=== PATIENT | male | born 1965 | race Caucasian/White ===

== ENCOUNTER 2023-08-18 17:37 | Inpatient (IN) | payer MEDICARE, OTHER ==
[~2023-08-18] VITALS: Ht 190.5 cm; Wt 81.2 kg
[2023-08-18 18:20] VITALS: BP 129/82; TEMP 97.4; O2SAT 100
[2023-08-18] MEDS ORDERED: BLOOD SUGAR DIAGNOSTIC 1 EACH STRIP VI ONE (18:30)
[2023-08-18] MEDS ORDERED: MAG HYDROX/AL HYDROX/SIMETH 30 ML LIQUID UDC PO PRN (18:30)
[2023-08-18] MEDS ORDERED: MAGNESIUM HYDROXIDE 30 ML LIQUID UDC PO PRN (18:30)
[2023-08-18 20:00] VITALS: BP 131/81; TEMP 97.6; O2SAT 99
[2023-08-18] MEDS: ACETAMINOPHEN 325 MG TABLET PO PRN (20:49)
[2023-08-18] MEDS: LORAZEPAM 1 MG TABLET PO PRN (20:50)
[2023-08-18] MEDS ORDERED: PHEN20EL8 PO (23:09)
[2023-08-18] MEDS ORDERED: BENZ1TAB7 PO (23:09)
[2023-08-18] MEDS ORDERED: RISP3TAB61 PO (23:09)
[2023-08-18] MEDS ORDERED: ASPI-1169 PO (23:09)
[2023-08-18] MEDS ORDERED: ATOR20TA PO (23:09)
[2023-08-18] MEDS ORDERED: GABA100C PO (23:09)
[2023-08-18] MEDS ORDERED: FURO-152 PO (23:09)
[2023-08-18] MEDS ORDERED: QUET200T PO (23:09)
[2023-08-18] MEDS ORDERED: POTA20TA83 PO (23:09)
[2023-08-18] MEDS ORDERED: LITH300T3 PO (23:09)
[2023-08-18] MEDS ORDERED: LEVE1000 PO (23:09)
[2023-08-18] MEDS ORDERED: DILT-32 PO (23:09)
[2023-08-18] MEDS ORDERED: DIGO125T PO (23:09)
[2023-08-18] MEDS: ZOLPIDEM 5 MG TABLET PO PRN (23:19)
[2023-08-19 07:53] VITALS: BP 122/60; TEMP 98.4; O2SAT 99
[2023-08-19 08:11] LABS: BASOPHILS % (AUTO) 0.2 % (0.0-2.0); DIFFERENTIAL COMMENT 1; EOSINOPHILS # (AUTO) 0.2 K/uL (0.0-0.7); EOSINOPHILS % (AUTO) 2.9 % (0.0-7.0); HEMATOCRIT 40.1 % (36.7-47.1); HEMOGLOBIN 13.5 g/dL (12.5-16.3); LYMPHOCYTES # (AUTO) 0.8 K/uL (0.8-4.8); LYMPHOCYTES % (AUTO) 11.5 % (20.5-51.5); MEAN CORPUSCULAR HEMOGLOBIN 28.8 uug (23.8-33.4); MEAN CORPUSCULAR HGB CONC 34 g/dL (32.5-36.3); MEAN CORPUSCULAR VOLUME 85.6 fL (73.0-96.2); MONOCYTES # (AUTO) 0.6 K/uL (0.1-1.30); MONOCYTES % (AUTO) 8.2 % (0.0-11.0); NEUTROPHILS # (AUTO) 5.4 K/uL (1.8-8.9); NEUTROPHILS % (AUTO) 77.2 % (38.5-71.5); PLATELET COUNT (AUTO) 216 K/uL (152-348); RED BLOOD CELL COUNT(AUTO) 4.69 MIL/uL (4.06-5.63); RED CELL DISTRIBUTION WIDTH 14.9 % (12.1-16.2); WHITE BLOOD COUNT (AUTO) 6.9 K/uL (3.6-10.2)
[2023-08-19 08:53] LABS: ALBUMIN 3.3 g/dL (3.4-5.0); BILIRUBIN,TOTAL 0.5 mg/dL (0.2-1.0); CALCIUM 8.5 mg/dL (8.5-10.1); CREATININE 0.7 mg/dL (0.6-1.3); THYROID STIMULATING HORMONE 0.777 mIU/mL (0.358-3.740); TOTAL PROTEIN, SERUM 6.1 g/dL (6.4-8.2)
[2023-08-19 09:09] LABS: MAGNESIUM 1.9 mg/dL (1.8-2.4); PHOSPHOROUS 3.4 mg/dL (2.5-4.9)
[2023-08-19] MEDS: GABAPENTIN 100 MG CAPSULE PO SCH ×2 (13:51→17:34)
[2023-08-19 15:39] VITALS: BP 124/78; TEMP 98.2; O2SAT 96
[2023-08-19] MEDS ORDERED: DILT-2 PO (15:40)
[2023-08-19] MEDS ORDERED: ATOR40TA PO (15:40)
[2023-08-19] MEDS ORDERED: POLY17PO4 PO (15:40)
[2023-08-19] MEDS ORDERED: QUET200T PO (15:40)
[2023-08-19] MEDS ORDERED: LEVE500T9 PO (15:40)
[2023-08-19] MEDS ORDERED: BENZ1TAB7 PO (15:40)
[2023-08-19] MEDS ORDERED: LUBI24CA5 PO (15:40)
[2023-08-19] MEDS ORDERED: APIX5TAB PO (15:40)
[2023-08-19] MEDS ORDERED: PHENOBARBITAL PO (15:40)
[2023-08-19] MEDS ORDERED: RISP3TAB5 PO (15:40)
[2023-08-19] MEDS ORDERED: DOCU100C36 PO (15:40)
[2023-08-19] MEDS ORDERED: ACET325T53 PO (15:40)
[2023-08-19] MEDS: LITHIUM CARBONATE 300 MG CAPSULE PO SCH (17:33)
[2023-08-19] MEDS: risperiDONE 2 MG TABLET PO SCH (17:34)
[2023-08-19 20:07] VITALS: BP 131/69; TEMP 98.1; O2SAT 96
[2023-08-19] MEDS: levETIRAcetam 500 MG TABLET PO SCH (20:38)
[2023-08-19] MEDS: ATORVASTATIN 40 MG TABLET PO SCH (20:38)
[2023-08-19] MEDS: TRAZODONE 50 MG TABLET PO SCH (20:38)
[2023-08-20 08:00] VITALS: BP 95/47; TEMP 97.9; O2SAT 97
[2023-08-20] MEDS: levETIRAcetam 500 MG TABLET PO SCH ×2 (08:55→20:06)
[2023-08-20] MEDS: DILTIAZEM HCL CD 120 MG CAP.SR.24H PO SCH (08:55)
[2023-08-20] MEDS: LITHIUM CARBONATE 300 MG CAPSULE PO SCH ×2 (08:55→17:00)
[2023-08-20] MEDS: risperiDONE 2 MG TABLET PO SCH ×2 (08:55→17:00)
[2023-08-20] MEDS: GABAPENTIN 100 MG CAPSULE PO SCH ×3 (08:56→17:01)
[2023-08-20] MEDS: DIGOXIN 125 MCG TABLET PO SCH (08:59)
[2023-08-20] MEDS ORDERED: ASPIRIN 81 MG TAB.CHEW PO SCH (09:00)
[2023-08-20] MEDS ORDERED: POTASSIUM CHLORIDE 20 MEQ TAB.PRT.SR PO SCH (09:00)
[2023-08-20] MEDS ORDERED: FUROSEMIDE 20 MG TABLET PO SCH (09:00)
[2023-08-20] MEDS ORDERED: ACETAMINOPHEN 325 MG TABLET-SA PATIENTS-PAIN ONLY PO PRN (12:00)
[2023-08-20] MEDS ORDERED: QUETIAPINE FUMARATE 200 MG TABLET PO SCH (13:00)
[2023-08-20 15:34] VITALS: BP 126/90; TEMP 98.1; O2SAT 97
[2023-08-20] MEDS: DOCUSATE SODIUM 100 MG CAPSULE PO SCH (16:59)
[2023-08-20] MEDS: APIXABAN 5 MG TABLET PO SCH (17:00)
[2023-08-20] MEDS ORDERED: levETIRAcetam 500 MG TABLET PO SCH (17:00)
[2023-08-20 19:49] VITALS: BP 123/69; TEMP 97.5; O2SAT 98
[2023-08-20] MEDS: ATORVASTATIN 40 MG TABLET PO SCH (20:06)
[2023-08-20] MEDS: TRAZODONE 50 MG TABLET PO SCH (20:06)
[2023-08-20] MEDS ORDERED: ATORVASTATIN 40 MG TABLET PO SCH (21:00)
[2023-08-20] MEDS: ZOLPIDEM 5 MG TABLET PO PRN (21:54)
[2023-08-21] MEDS: LORAZEPAM 1 MG TABLET PO PRN ×2 (01:06→22:43)
[2023-08-21 07:54] VITALS: BP 127/79; TEMP 98; O2SAT 99
[2023-08-21] MEDS: MIRALAX 17 GM POWD.PACK PO SCH (08:50)
[2023-08-21] MEDS: DOCUSATE SODIUM 100 MG CAPSULE PO SCH ×2 (08:53→16:43)
[2023-08-21] MEDS: risperiDONE 2 MG TABLET PO SCH ×2 (08:54→16:43)
[2023-08-21] MEDS: GABAPENTIN 100 MG CAPSULE PO SCH ×3 (08:54→16:43)
[2023-08-21] MEDS: APIXABAN 5 MG TABLET PO SCH ×2 (08:55→16:49)
[2023-08-21] MEDS: levETIRAcetam 500 MG TABLET PO SCH ×2 (08:55→20:29)
[2023-08-21] MEDS: DILTIAZEM HCL CD 120 MG CAP.SR.24H PO SCH (08:57)
[2023-08-21] MEDS: LITHIUM CARBONATE 300 MG CAPSULE PO SCH ×2 (08:57→16:43)
[2023-08-21] MEDS: DIGOXIN 125 MCG TABLET PO SCH (08:58)
[2023-08-21] MEDS ORDERED: BENZTROPINE MESYLATE 1 MG TABLET PO SCH (09:00)
[2023-08-21] MEDS ORDERED: DILTIAZEM HCL CD 120 MG CAP.SR.24H PO SCH (09:00)
[2023-08-21 14:42] VITALS: BP 132/52; TEMP 97.8; O2SAT 99
[2023-08-21] MEDS: ENSURE ENLIVE (VAN) 240 ML LIQUID PO SCH (17:00)
[2023-08-21 19:44] VITALS: BP 121/57; TEMP 97.3; O2SAT 98
[2023-08-21] MEDS: TRAZODONE 50 MG TABLET PO SCH (20:28)
[2023-08-21] MEDS: ATORVASTATIN 40 MG TABLET PO SCH (20:29)
[2023-08-21] MEDS: ZOLPIDEM 5 MG TABLET PO PRN (23:45)
[2023-08-22 07:33] VITALS: BP 142/64; TEMP 98.4; O2SAT 98
[2023-08-22] MEDS: DOCUSATE SODIUM 100 MG CAPSULE PO SCH ×2 (09:23→17:04)
[2023-08-22] MEDS: LITHIUM CARBONATE 300 MG CAPSULE PO SCH ×2 (09:23→17:04)
[2023-08-22] MEDS: levETIRAcetam 500 MG TABLET PO SCH ×2 (09:23→20:41)
[2023-08-22] MEDS: GABAPENTIN 100 MG CAPSULE PO SCH ×3 (09:23→17:04)
[2023-08-22] MEDS: risperiDONE 2 MG TABLET PO SCH ×3 (09:23→17:04)
[2023-08-22] MEDS: DIGOXIN 125 MCG TABLET PO SCH (09:23)
[2023-08-22] MEDS: DILTIAZEM HCL CD 120 MG CAP.SR.24H PO SCH (09:24)
[2023-08-22] MEDS: APIXABAN 5 MG TABLET PO SCH ×2 (09:55→17:56)
[2023-08-22] MEDS: MIRALAX 17 GM POWD.PACK PO SCH (09:57)
[2023-08-22] MEDS: ENSURE ENLIVE (VAN) 240 ML LIQUID PO SCH ×2 (09:59→17:56)
[2023-08-22 16:01] VITALS: BP 135/74; TEMP 98.3; O2SAT 98
[2023-08-22] MEDS: LORAZEPAM 1 MG TABLET PO PRN ×2 (17:04→22:48)
[2023-08-22 20:00] VITALS: BP 132/69; TEMP 97.8; O2SAT 99
[2023-08-22] MEDS: ATORVASTATIN 40 MG TABLET PO SCH (20:42)
[2023-08-22] MEDS: TRAZODONE 50 MG TABLET PO SCH (20:42)
[2023-08-22] MEDS: ACETAMINOPHEN 325 MG TABLET PO PRN (22:04)
[2023-08-22] MEDS: ZOLPIDEM 5 MG TABLET PO PRN (23:49)
[2023-08-23 07:50] VITALS: BP 142/65; TEMP 98; O2SAT 98
[2023-08-23] MEDS: ENSURE ENLIVE (VAN) 240 ML LIQUID PO SCH ×2 (08:00→17:15)
[2023-08-23] MEDS: risperiDONE 2 MG TABLET PO SCH ×3 (08:49→17:14)
[2023-08-23] MEDS: LITHIUM CARBONATE 300 MG CAPSULE PO SCH (08:49)
[2023-08-23] MEDS: levETIRAcetam 500 MG TABLET PO SCH ×2 (08:50→21:05)
[2023-08-23] MEDS: APIXABAN 5 MG TABLET PO SCH ×2 (08:51→17:13)
[2023-08-23] MEDS: GABAPENTIN 100 MG CAPSULE PO SCH ×3 (08:52→17:14)
[2023-08-23] MEDS: DIGOXIN 125 MCG TABLET PO SCH (08:53)
[2023-08-23] MEDS: DILTIAZEM HCL CD 120 MG CAP.SR.24H PO SCH (08:53)
[2023-08-23] MEDS: DOCUSATE SODIUM 100 MG CAPSULE PO SCH ×2 (09:00→17:00)
[2023-08-23] MEDS: MIRALAX 17 GM POWD.PACK PO SCH (09:00)
[2023-08-23 14:34] LABS: BASOPHILS % (AUTO) 0.4 % (0.0-2.0); DIFFERENTIAL COMMENT 0; EOSINOPHILS # (AUTO) 0.1 K/uL (0.0-0.7); EOSINOPHILS % (AUTO) 1.2 % (0.0-7.0); HEMATOCRIT 45.3 % (36.7-47.1); HEMOGLOBIN 15.6 g/dL (12.5-16.3); LYMPHOCYTES # (AUTO) 0.5 K/uL (0.8-4.8); LYMPHOCYTES % (AUTO) 5.5 % (20.5-51.5); MEAN CORPUSCULAR HEMOGLOBIN 29.1 uug (23.8-33.4); MEAN CORPUSCULAR HGB CONC 34 g/dL (32.5-36.3); MEAN CORPUSCULAR VOLUME 84.8 fL (73.0-96.2); MONOCYTES # (AUTO) 0.6 K/uL (0.1-1.30); MONOCYTES % (AUTO) 6.8 % (0.0-11.0); NEUTROPHILS # (AUTO) 8.2 K/uL (1.8-8.9); NEUTROPHILS % (AUTO) 86.1 % (38.5-71.5); PLATELET COUNT (AUTO) 209 K/uL (152-348); RED BLOOD CELL COUNT(AUTO) 5.35 MIL/uL (4.06-5.63); RED CELL DISTRIBUTION WIDTH 14.2 % (12.1-16.2); WHITE BLOOD COUNT (AUTO) 9.5 K/uL (3.6-10.2)
[2023-08-23 14:44] LABS: CALCIUM 9.6 mg/dL (8.5-10.1); CREATININE 0.9 mg/dL (0.6-1.3); POTASSIUM 4.6 mmol/L (3.5-5.1)
[2023-08-23 14:50] LABS: ALBUMIN 4.1 g/dL (3.4-5.0); BILIRUBIN,TOTAL 0.7 mg/dL (0.2-1.0); TOTAL PROTEIN, SERUM 7.4 g/dL (6.4-8.2)
[2023-08-23 16:07] VITALS: BP 127/59; TEMP 98; O2SAT 98
[2023-08-23 20:00] VITALS: BP 129/73; TEMP 97.9; O2SAT 100
[2023-08-23] MEDS: ATORVASTATIN 40 MG TABLET PO SCH (21:04)
[2023-08-23] MEDS: TRAZODONE 50 MG TABLET PO SCH (21:04)
[2023-08-23] MEDS: ACETAMINOPHEN 325 MG TABLET PO PRN (21:05)
[2023-08-23] MEDS: ZOLPIDEM 5 MG TABLET PO PRN (22:06)
[2023-08-24] MEDS: LORAZEPAM 1 MG TABLET PO PRN (00:06)
[2023-08-24 08:08] VITALS: BP 114/61; TEMP 98.4; O2SAT 97
[2023-08-24] MEDS: levETIRAcetam 500 MG TABLET PO SCH ×2 (08:32→20:08)
[2023-08-24] MEDS: risperiDONE 2 MG TABLET PO SCH ×3 (08:32→17:07)
[2023-08-24] MEDS: GABAPENTIN 100 MG CAPSULE PO SCH ×3 (08:32→17:07)
[2023-08-24] MEDS: APIXABAN 5 MG TABLET PO SCH ×2 (08:33→17:09)
[2023-08-24] MEDS: DILTIAZEM HCL CD 120 MG CAP.SR.24H PO SCH (08:34)
[2023-08-24] MEDS: DIGOXIN 125 MCG TABLET PO SCH (08:34)
[2023-08-24] MEDS: DOCUSATE SODIUM 100 MG CAPSULE PO SCH ×2 (08:35→17:00)
[2023-08-24] MEDS: ENSURE ENLIVE (VAN) 240 ML LIQUID PO SCH ×2 (08:35→17:10)
[2023-08-24] MEDS: MIRALAX 17 GM POWD.PACK PO SCH (08:36)
[2023-08-24 16:27] VITALS: BP 122/70; TEMP 98.2; O2SAT 98
[2023-08-24 19:41] VITALS: BP 122/66; TEMP 98.1; O2SAT 100
[2023-08-24] MEDS: ATORVASTATIN 40 MG TABLET PO SCH (20:08)
[2023-08-24] MEDS: TRAZODONE 50 MG TABLET PO SCH (20:08)
[2023-08-24] MEDS: ZOLPIDEM 5 MG TABLET PO PRN (22:19)
[2023-08-25] MEDS: LORAZEPAM 1 MG TABLET PO PRN (01:47)
[2023-08-25 07:52] VITALS: BP 126/64; TEMP 98.2; O2SAT 100
[2023-08-25] MEDS: levETIRAcetam 500 MG TABLET PO SCH ×2 (12:19→20:55)
[2023-08-25] MEDS: GABAPENTIN 100 MG CAPSULE PO SCH ×3 (12:19→16:53)
[2023-08-25] MEDS: risperiDONE 2 MG TABLET PO SCH ×3 (12:20→16:53)
[2023-08-25] MEDS: MIRALAX 17 GM POWD.PACK PO SCH (12:20)
[2023-08-25] MEDS: DOCUSATE SODIUM 100 MG CAPSULE PO SCH ×2 (12:20→16:53)
[2023-08-25] MEDS: DILTIAZEM HCL CD 120 MG CAP.SR.24H PO SCH (12:21)
[2023-08-25] MEDS: DIGOXIN 125 MCG TABLET PO SCH (12:21)
[2023-08-25] MEDS: APIXABAN 5 MG TABLET PO SCH ×2 (12:22→16:55)
[2023-08-25 15:33] VITALS: BP 125/65; TEMP 98.2; O2SAT 100
[2023-08-25 20:13] VITALS: BP 115/60; TEMP 98.1; O2SAT 98
[2023-08-25] MEDS: ATORVASTATIN 40 MG TABLET PO SCH (20:55)
[2023-08-25] MEDS: TRAZODONE 50 MG TABLET PO SCH (20:56)
[2023-08-25] MEDS: TEMAZEPAM 15 MG CAPSULE PO PRN (22:05)
[2023-08-26 07:52] VITALS: BP 116/77; TEMP 98.2; O2SAT 99
[2023-08-26] MEDS: MIRALAX 17 GM POWD.PACK PO SCH (09:00)
[2023-08-26] MEDS: DOCUSATE SODIUM 100 MG CAPSULE PO SCH ×2 (09:00→16:51)
[2023-08-26] MEDS: levETIRAcetam 500 MG TABLET PO SCH ×2 (10:44→21:07)
[2023-08-26] MEDS: GABAPENTIN 100 MG CAPSULE PO SCH ×3 (10:44→16:50)
[2023-08-26] MEDS: risperiDONE 2 MG TABLET PO SCH ×3 (10:44→16:50)
[2023-08-26] MEDS: ENSURE ENLIVE (VAN) 240 ML LIQUID PO SCH (10:45)
[2023-08-26] MEDS: DILTIAZEM HCL CD 120 MG CAP.SR.24H PO SCH (10:45)
[2023-08-26] MEDS: DIGOXIN 125 MCG TABLET PO SCH (10:45)
[2023-08-26] MEDS: APIXABAN 5 MG TABLET PO SCH ×2 (10:49→16:50)
[2023-08-26 15:39] VITALS: BP 117/72; TEMP 98.2; O2SAT 99
[2023-08-26 20:15] VITALS: BP 122/70; TEMP 98.3; O2SAT 98
[2023-08-26] MEDS: TRAZODONE 50 MG TABLET PO SCH (21:06)
[2023-08-26] MEDS: LORAZEPAM 1 MG TABLET PO PRN (21:07)
[2023-08-26] MEDS: ATORVASTATIN 40 MG TABLET PO SCH (21:07)
[2023-08-26] MEDS: TEMAZEPAM 15 MG CAPSULE PO PRN (22:48)
[2023-08-27 07:52] VITALS: BP 115/65; TEMP 98.2; O2SAT 99
[2023-08-27] MEDS: MIRALAX 17 GM POWD.PACK PO SCH (09:00)
[2023-08-27] MEDS: DOCUSATE SODIUM 100 MG CAPSULE PO SCH ×2 (09:00→17:07)
[2023-08-27] MEDS: levETIRAcetam 500 MG TABLET PO SCH ×2 (09:39→21:11)
[2023-08-27] MEDS: GABAPENTIN 100 MG CAPSULE PO SCH ×3 (09:39→16:58)
[2023-08-27] MEDS: DIGOXIN 125 MCG TABLET PO SCH (09:40)
[2023-08-27] MEDS: DILTIAZEM HCL CD 120 MG CAP.SR.24H PO SCH (09:40)
[2023-08-27] MEDS: ENSURE ENLIVE (VAN) 240 ML LIQUID PO SCH (09:41)
[2023-08-27] MEDS: APIXABAN 5 MG TABLET PO SCH ×2 (09:42→17:05)
[2023-08-27 15:35] VITALS: BP 95/65; TEMP 98; O2SAT 100
[2023-08-27] MEDS: risperiDONE 1 MG TABLET PO SCH (16:58)
[2023-08-27] MEDS ORDERED: risperiDONE 2 MG TABLET PO SCH (17:00)
[2023-08-27 20:00] VITALS: BP 122/74; TEMP 98.1; O2SAT 97
[2023-08-27] MEDS: risperiDONE 2 MG TABLET PO SCH (21:11)
[2023-08-27] MEDS: ATORVASTATIN 40 MG TABLET PO SCH (21:11)
[2023-08-27] MEDS: TRAZODONE 50 MG TABLET PO SCH (21:12)
[2023-08-27] MEDS: TEMAZEPAM 15 MG CAPSULE PO PRN (23:40)
[2023-08-28 07:30] VITALS: BP 129/85; TEMP 98; O2SAT 98
[2023-08-28] MEDS: DOCUSATE SODIUM 100 MG CAPSULE PO SCH ×2 (09:24→16:54)
[2023-08-28] MEDS: DILTIAZEM HCL CD 120 MG CAP.SR.24H PO SCH (09:24)
[2023-08-28] MEDS: levETIRAcetam 500 MG TABLET PO SCH ×2 (09:26→20:43)
[2023-08-28] MEDS: APIXABAN 5 MG TABLET PO SCH ×2 (09:26→16:56)
[2023-08-28] MEDS: MIRALAX 17 GM POWD.PACK PO SCH (09:27)
[2023-08-28] MEDS: DIGOXIN 125 MCG TABLET PO SCH (09:27)
[2023-08-28] MEDS: GABAPENTIN 100 MG CAPSULE PO SCH ×3 (09:28→16:55)
[2023-08-28] MEDS: risperiDONE 1 MG TABLET PO SCH ×2 (09:28→16:55)
[2023-08-28] MEDS: ENSURE ENLIVE (VAN) 240 ML LIQUID PO SCH (09:29)
[2023-08-28 15:27] VITALS: BP 160/72; TEMP 98; O2SAT 98
[2023-08-28 16:20] VITALS: BP 130/70; TEMP 98; O2SAT 98
[2023-08-28 20:00] VITALS: BP 128/84; TEMP 97.9; O2SAT 98
[2023-08-28] MEDS: TRAZODONE 50 MG TABLET PO SCH (20:43)
[2023-08-28] MEDS: LORAZEPAM 1 MG TABLET PO PRN (20:43)
[2023-08-28] MEDS: risperiDONE 2 MG TABLET PO SCH (20:43)
[2023-08-28] MEDS: ATORVASTATIN 40 MG TABLET PO SCH (20:44)
[2023-08-28] MEDS: TEMAZEPAM 15 MG CAPSULE PO PRN (23:29)
[2023-08-29 08:18] VITALS: BP 131/83; TEMP 98.1; O2SAT 98
[2023-08-29] MEDS: levETIRAcetam 500 MG TABLET PO SCH (08:43)
[2023-08-29] MEDS: risperiDONE 1 MG TABLET PO SCH (08:43)
[2023-08-29] MEDS: GABAPENTIN 100 MG CAPSULE PO SCH ×2 (08:43→12:14)
[2023-08-29 08:44] VITALS: BP 131/83
[2023-08-29] MEDS: DILTIAZEM HCL CD 120 MG CAP.SR.24H PO SCH (08:44)
[2023-08-29] MEDS: DIGOXIN 125 MCG TABLET PO SCH (08:44)
[2023-08-29] MEDS: APIXABAN 5 MG TABLET PO SCH (08:46)
[2023-08-29] MEDS: MIRALAX 17 GM POWD.PACK PO SCH (08:48)
[2023-08-29] MEDS: ENSURE ENLIVE (VAN) 240 ML LIQUID PO SCH (08:48)
[2023-08-29] MEDS: DOCUSATE SODIUM 100 MG CAPSULE PO SCH (08:48)
== END 2023-08-29 11:15 | DRG 885 ==
LOC: GPS 17:37
PROVIDERS: ADMIT Psychiatry & Neurology Psychiatry; ATTEND Nurse Practitioner Acute Care
DX: F25.0 Schizoaffective disorder, bipolar type (principal); I11.0 Hypertensive heart disease with heart failure; G93.41 Metabolic encephalopathy; I50.32 Chronic diastolic (congestive) heart failure; R45.851 Suicidal ideations; G40.909 Epilepsy, unspecified, not intractable, without status epilepticus; J44.9 Chronic obstructive pulmonary disease, unspecified; M54.30 Sciatica, unspecified side; Z87.891 Personal history of nicotine dependence; Z79.899 Other long term (current) drug therapy; I25.2 Old myocardial infarction; Z88.8 Allergy status to other drugs, medicaments and biological substances; I48.91 Unspecified atrial fibrillation; I25.10 Atherosclerotic heart disease of native coronary artery without angina pectoris; G62.9 Polyneuropathy, unspecified; Z91.51 Personal history of suicidal behavior
CPT/HCPCS: 36415; 70030-TC; 83735; 84100; 84443; 85025; 93005